=== PATIENT | male | born 1955 | race American Indian/Alaskan Native ===

== ENCOUNTER 2019-10-12 23:35 | Emergency (ER) | payer OTHER ==
[2019-10-12] MEDS ORDERED: ASPIRIN 325 MG TAB PO ONE (23:44)
[2019-10-13 00:18] LABS: Basophils # (Auto) 0.1 K/mm3 (0.0-0.1); Eosinophils # (Auto) 0.1 K/mm3 (0.0-0.4); Eosinophils % (Auto) 1.4 % (0.0-4.3); Hematocrit 40.3 % (35.5-45.6); Hemoglobin 13.4 gm/dl (11.8-15.2); Lymphocytes # (Auto) 3.4 K/mm3 (1.2-5.4); Lymphocytes % (Auto) 43.4 % (13.4-35.0); Mean Corpuscular HGB Conc 33 % (32-34); Mean Corpuscular Volume 85 fl (84-94); Monocytes # (Auto) 1.1 K/mm3 (0.0-0.8); Monocytes % (Auto) 13.5 % (0.0-7.3); Platelet Count 166 K/mm3 (140-440); Red Blood Count 4.75 M/mm3 (3.65-5.03); Red Cell Distribution Width 13.7 % (13.2-15.2)
--- NOTE | 2019-10-13 00:35 | XRay Report ---
CHEST 1 VIEW 10/12/2019 11:16 PM INDICATION / CLINICAL INFORMATION: Chest Pain. COMPARISON: None available. FINDINGS: SUPPORT DEVICES: None. HEART / MEDIASTINUM: Cardiomediastinal silhouette is within normal limits. LUNGS / PLEURA: No significant pulmonary or pleural abnormality. No pneumothorax. ADDITIONAL FINDINGS: No significant additional findings. IMPRESSION: 1. No acute findings. Signer Name: Denisse Dowd MD Signed: 10/13/2019 12:31 AM Workstation Name: [id number]
[2019-10-13 00:43] LABS: BUN/Creatinine Ratio 11; Blood Urea Nitrogen 14 mg/dL (9-20); Calcium 9.6 mg/dL (8.4-10.2); Hemolysis Index 9
--- NOTE | 2019-10-13 03:34 | Emergency Department Report ---
ED Chest Pain HPI - General Chief Complaint: Chest Pain Stated Complaint: CHEST PAIN Time Seen by Provider: 10/13/19 03:21 Source: patient Mode of arrival: Ambulatory Limitations: No Limitations - History of Present Illness Initial Comments: Patient is a 64-year-old male that presents emergency room with complaints of left-sided chest pain. Patient states his chest pain is intermittent. Patient states at times it radiates to his back. Patient states the chest pain is been going on for 4 days. Patient states that the chest pain is worse with movement and palpation. Patient states that pain has resolved at this time. Patient states his past pain is a 0 out of 10. Patient states when he arrived it was a 10 out of 10. Patient states that he has not been able to see his primary care. Patient states he has a past medical history of hypertension which he takes Norvasc for. Patient that she is compliant with his medications. Patient denie s shortness of breath. Patient denies fever. Patient denies fatigue. Patient denies chills. Patient denies dizziness. Patient denies blurry vision. Patient denies recent travel. Patient denies recent international travel. Patient denies exposure to the novel coronavirus. Patient denies sick contacts. Patient denies fever and chills. Patient denies cough. Patient denies diarrhea. Patient denies coming in contact with anybody with symptoms of the novel coronavirus. MD Complaint: chest pain -: Sudden Onset: during rest Pain Location: left chest Pain Radiation: back Quality: heaviness Consistency: now resolved Improves With: rest Worsens With: palpation, movement re: denies: nausea, vomting, diaphoresis, dyspnea, sense of impending doom Other Symptoms: denies: cough, fever, syncope, rash, acid taste in mouth, leg swelling, palpitations, burping Treatments Prior to Arrival: none Aspirin use within the Past 7 Days: (0) No - Related Data On Oral Contraceptives: No Allergies Allergy/AdvReac Type Severity Reaction Status Date / Time No Known Allergies Allergy Unverified 10/12/19 23:44 Heart Score - HEART Score History: Slightly suspicious EKG: Normal Age: 45-65 Risk factors: No known risk factors Troponin: < normal limit HEART Score: 1 ED Review of Systems ROS: Stated complaint: CHEST PAIN Other details as noted in HPI Constitutional: denies: chills, fever Eyes: denies: eye pain, eye discharge, vision change ENT: denies: ear pain, throat pain Respiratory: denies: cough, shortness of breath, wheezing Cardiovascular: chest pain. denies: palpitations Endocrine: no symptoms reported Gastrointestinal: denies: abdominal pain, nausea, diarrhea Genitourinary: denies: urgency, dysuria Musculoskeletal: denies: back pain, joint swelling, arthralgia Skin: denies: rash, lesions Neurological: denies: headache, weakness, paresthesias Psychiatric: denies: anxiety, depression Hematological/Lymphatic: denies: easy bleeding, easy bruising ED Past Medical Hx - Past Medical History Previous Medical History?: Yes Hx Hypertension: Yes - Surgical History Past Surgical History?: No - Family History Family history: no significant - Social History Smoking Status: Never Smoker Substance Use Type: None ED Physical Exam - General Limitations: No Limitations General appearance: alert, in no apparent distress - Head Head exam: Present: atraumatic, normocephalic - Eye Eye exam: Present: normal appearance - ENT ENT exam: Present: mucous membranes moist - Neck Neck exam: Present: normal inspection - Respiratory Respiratory exam: Present: normal lung sounds bilaterally, chest wall tenderness (Reproduces symptoms.). Absent: respiratory distress - Cardiovascular Cardiovascular Exam: Present: regular rate, normal rhythm. Absent: systolic murmur, diastolic murmur, rubs, gallop - GI/Abdominal GI/Abdominal exam: Present: soft, normal bowel sounds - Rectal Rectal exam: Present: deferred - Extremities Exam Extremities exam: Present: normal inspection - Back Exam Back exam: Present: normal inspection - Neurological Exam Neurological exam: Present: alert, oriented X3 - Psychiatric Psychiatric exam: Present: normal affect, normal mood - Skin Skin exam: Present: warm, dry, intact, normal color. Absent: rash ED Course Vital Signs 10/12/19 23:45 Temperature 97.7 F Pulse Rate 65 Respiratory 18 Rate Blood Pressure 162/91 O2 Sat by Pulse 96 Oximetry - Reevaluation(s) Reevaluation #1: I discussed all results and clinical findings with patient. I discussed plan of care with patient. Patient agrees with plan of care. Patient is stable for discharge. Patient will be discharged home. Patient given discharge instructions. Patient voiced understanding of discharge instructions. 10/13/19 03:35 TERE score - Tere Score Age > 65: (0) No Aspirin use within the Past 7 Days: (0) No 3 or more CAD Risk Factors: (0) No 2 or more Angina events in past 24 hrs: (0) No Known CAD with more than 50% Stenosis: (0) No Elevated Cardiac Markers: (0) No ST Deviation Greater than 0.5mm: (0) No TERE Score: 0 ED Medical Decision Making - Lab Data Result diagrams: 10/12/19 23:56 10/12/19 23:56 - EKG Data -: EKG Interpreted by Me EKG shows normal: sinus rhythm, axis, intervals, QRS complexes, ST-T waves Rate: normal - Radiology Data Radiology results: report reviewed, image reviewed interpreted by me: No acute findings on chest x-ray. - Medical Decision Making Patient is a 64-year-old male that presents emergency room with complaints of chest pain and back pain. Patient pain had resolved prior to initial evaluation. However when patient's chest wall was palpated, the symptoms are reproducible. Patient stable for discharge. Patient's chest pain is low risk. Patient will be sent to follow-up with his primary care and is information faxed over to a local cardiology group for further evaluation and treatment. Patient says chest pain is low risk and can be worked up as an outpatient. Patient instructed take a daily aspirin. Patient instructed to rest and avoid strenuous exercise until cleared by immunology specialist. Patient's chest x-ray is negative for acute findings. Patient's EKG shows sinus rhythm and is negative for acute findings. Patient's labs are unremarkable. Patient troponin negative x2. - Differential Diagnosis Costochondritis, chest wall pain, chest pain, chest sprain. Critical care attestation.: If time is entered above; I have spent that time in minutes in the direct care of this critically ill patient, excluding procedure time. ED Disposition Clinical Impression: Chest wall pain Chest pain Qualifiers: Chest pain type: unspecified Qualified Code(s): R07.9 - Chest pain, unspecified Back pain Qualifiers: Back pain location: thoracic back pain Chronicity: acute Back pain laterality: left Qualified Code(s): M54.6 - Pain in thoracic spine Disposition: - TO HOME OR SELFCARE Is pt being admited?: No Does the pt Need Aspirin: No Condition: Stable Instructions: Chest Pain (ED), Costochondritis (ED) Additional Instructions: Patient to follow-up with primary care in 2 to 3 days. Patient to follow-up with immunology specialist in 2 to 3 days. Patient to rest. Patient to increase water. Patient to avoid strenuous exercise or heavy lifting until cleared by immunology specialist. Patient to take Tylenol or ibuprofen as needed for pain. Patient start a baby aspirin daily.. Patient to return to the ER if condition worsens, changes or new symptoms arise. Referrals: FRANSICO WHITTEN MD [Primary Care Provider] - 2-3 Days FRANTZ SANCHEZ MD [Staff Physician] - 2-3 Days Time of Disposition: 03:34
[2019-10-13 05:34] VITALS: BP 152/86
== END 2019-10-13 04:20 | disposition home or self-care (01) ==
LOC: ED 23:35
DX: R07.89 Other chest pain (principal); M54.6 Pain in thoracic spine; I10 Essential (primary) hypertension
CPT/HCPCS: 36415; 71045; 80048; 84484; 85025; 93005; 93010; 99284

== ENCOUNTER 2020-05-25 22:34 | Emergency (ER) | payer OTHER ==
[2020-05-25] MEDS ORDERED: ASPIRIN 81 MG TAB CHEW PO ONE (23:12)
--- NOTE | 2020-05-25 23:13 | Emergency Department Report ---
ED Chest Pain HPI - General Chief Complaint: Chest Pain Stated Complaint: CHEST PAINS PUI?: No Time Seen by Provider: 05/25/20 23:10 Source: patient Mode of arrival: Ambulatory Limitations: No Limitations - History of Present Illness Initial Comments: Patient is a 65-year-old male that presents emergency room with complaints of right-sided chest pain. Patient states his chest pain is worsening. Patient states his chest pain is a 4 out of 10. Patient states the chest pain started at 2 PM today. Patient states that the chest pain started when he was sitting. Patient states that the chest pain is unchanged by any factors. Patient denies shortness of breath. Patient denies fever and chills. Patient denies cough. Patient denies abdominal pain. Patient denies nausea and vomiting. Patient denies recent travel. Patient denies recent international travel. Patient denies exposure to the novel coronavirus. Patient denies sick contacts. Patient denies fever and chills. Patient denies cough. Patient denies jamila rrhea. Patient denies coming in contact with anybody with symptoms of the novel coronavirus. MD Complaint: chest pain -: Sudden Pain Location: right chest Severity scale (0 -10): 4 Quality: pressure Consistency: constant Improves With: nothing Worsens With: nothing re: denies: nausea, vomting, diaphoresis, dyspnea, sense of impending doom Other Symptoms: denies: cough, fever, syncope, rash, acid taste in mouth, leg swelling, palpitations, burping Treatments Prior to Arrival: none Aspirin use within the Past 7 Days: (0) No - Related Data On Oral Contraceptives: No Allergies Allergy/AdvReac Type Severity Reaction Status Date / Time No Known Allergies Allergy Unverified 10/12/19 23:44 Heart Score - HEART Score History: Slightly suspicious EKG: Normal Age: 45-65 Risk factors: No known risk factors Troponin: < normal limit HEART Score: 1 ED Review of Systems ROS: Stated complaint: CHEST PAINS Other details as noted in HPI Constitutional: denies: chills, fever Eyes: denies: eye pain, eye discharge, vision change ENT: denies: ear pain, throat pain Respiratory: denies: cough, shortness of breath, wheezing Cardiovascular: chest pain. denies: palpitations Endocrine: no symptoms reported Gastrointestinal: denies: abdominal pain, nausea, diarrhea Genitourinary: denies: urgency, dysuria Musculoskeletal: denies: back pain, joint swelling, arthralgia Skin: denies: rash, lesions Neurological: denies: headache, weakness, paresthesias Psychiatric: denies: anxiety, depression Hematological/Lymphatic: denies: easy bleeding, easy bruising ED Past Medical Hx - Past Medical History Previous Medical History?: Yes Hx Hypertension: Yes - Surgical History Past Surgical History?: No - Family History Family history: no significant - Social History Smoking Status: Never Smoker Substance Use Type: None ED Physical Exam - General Limitations: No Limitations General appearance: alert, in no apparent distress - Head Head exam: Present: atraumatic, normocephalic - Eye Eye exam: Present: normal appearance - ENT ENT exam: Present: mucous membranes moist - Neck Neck exam: Present: normal inspection - Respiratory Respiratory exam: Present: normal lung sounds bilaterally, chest wall tenderness. Absent: respiratory distress - Cardiovascular Cardiovascular Exam: Present: regular rate, normal rhythm, normal heart sounds. Absent: systolic murmur, diastolic murmur, rubs, gallop - GI/Abdominal GI/Abdominal exam: Present: soft, normal bowel sounds - Rectal Rectal exam: Present: deferred - Extremities Exam Extremities exam: Present: normal inspection - Back Exam Back exam: Present: normal inspection - Neurological Exam Neurological exam: Present: alert, oriented X3 - Psychiatric Psychiatric exam: Present: normal affect, normal mood - Skin Skin exam: Present: warm, dry, intact, normal color. Absent: rash ED Course Vital Signs 05/25/20 05/25/20 05/25/20 23:03 23:04 23:16 Temperature 98.3 F Pulse Rate 75 Respiratory 18 Rate Blood Pressure 147/73 129/70 Blood Pressure 147/73 [Left] O2 Sat by Pulse 93 100 90 Oximetry 05/25/20 05/25/20 05/26/20 23:30 23:45 00:00 Temperature Pulse Rate Respiratory Rate Blood Pressure 129/70 124/71 119/63 Blood Pressure [Left] O2 Sat by Pulse 91 94 94 Oximetry 05/26/20 00:15 Temperature Pulse Rate Respiratory Rate Blood Pressure 116/67 Blood Pressure [Left] O2 Sat by Pulse 94 Oximetry - Reevaluation(s) Reevaluation #1: Patient states his chest pain has resolved. I discussed all results and clinical findings with patient. I discussed plan of care with patient. Patient agrees with plan of care. Patient is stable for discharge. Patient will be discharged home. Patient given discharge instructions. Patient voiced understanding of discharge instructions. 05/26/20 01:06 TERE score - Tere Score Age > 65: (0) No Aspirin use within the Past 7 Days: (0) No 3 or more CAD Risk Factors: (0) No 2 or more Angina events in past 24 hrs: (0) No Known CAD with more than 50% Stenosis: (0) No Elevated Cardiac Markers: (0) No ST Deviation Greater than 0.5mm: (0) No TERE Score: 0 ED Medical Decision Making - Lab Data Result diagrams: 05/25/20 23:30 05/25/20 23:30 - EKG Data -: EKG Interpreted by Me EKG shows normal: sinus rhythm, axis, intervals, QRS complexes, ST-T waves Rate: bradycardia - Radiology Data Radiology results: report reviewed interpreted by me: Chest x-ray: No pneumonia, no pneumothorax, no foreign body, no osseous findings, no acute findings CHEST 1 VIEW INDICATION / CLINICAL INFORMATION: Chest Pain. FINDINGS: SUPPORT DEVICES: None. HEART / MEDIASTINUM: No significant abnormality. LUNGS / PLEURA: No significant pulmonary or pleural abnormality. No pneumothorax. ADDITIONAL FINDINGS: No significant additional findings. IMPRESSION: 1. No acute findings. - Medical Decision Making Patient is a 65-year-old male that presents emergency room with complaints of right-sided chest pain that started 9 hours prior to arrival. Patient chest pain is reproducible on exam. Patient's labs were essentially unremarkable. Patient chest x-ray is negative. Patient's D-dimer is negative. Patient's EKG is negative. Patient is stable for discharge. Patient's information will be faxed over to her local cytometry technologist for risk stratification of the patient's chest pain. Patient will need to follow-up with a cytometry technologist and his primary care as needed possible. - Differential Diagnosis Chest pain, chest wall pain, PE, chest strain. Critical care attestation.: If time is entered above; I have spent that time in minutes in the direct care of this critically ill patient, excluding procedure time. ED Disposition Clinical Impression: Right-sided chest pain, Hyperglycemia Chest pain Qualifiers: Chest pain type: unspecified Qualified Code(s): R07.9 - Chest pain, unspecified Disposition: DC-01 TO HOME OR SELFCARE Is pt being admited?: No Does the pt Need Aspirin: No Condition: Stable Instructions: Chest Wall Pain, [id number], Hyperglycemia, Chest Pain (ED) Additional Instructions: Patient to follow-up with primary care in 2 to 3 days. Patient to follow-up with cytometry technologist in 2 to 3 days. Patient to rest. Patient to increase water. Patient to avoid strenuous exercise or heavy lifting until cleared by cytometry technologist. Patient to take Tylenol or ibuprofen as needed for pain. Patient to eat a heart healthy diet. Patient to monitor blood pressure at home. Patient states blood pressure log to follow-up appointments. Patient to avoid working until cleared by cytometry technologist. Patient to return to the ER if condition worsens, changes or new symptoms arise. Referrals: PRIMARY CARE, [Primary Care Provider] - 2-3 Days FRANTZ SANCHEZ MD [Staff Physician] - 2-3 Days Time of Disposition: 01:12
--- NOTE | 2020-05-25 23:50 | XRay Report ---
CHEST 1 VIEW INDICATION / CLINICAL INFORMATION: Chest Pain. FINDINGS: SUPPORT DEVICES: None. HEART / MEDIASTINUM: No significant abnormality. LUNGS / PLEURA: No significant pulmonary or pleural abnormality. No pneumothorax. ADDITIONAL FINDINGS: No significant additional findings. IMPRESSION: 1. No acute findings. Signer Name: Chico Russo MD Signed: 05/25/2020 11:45 PM Workstation Name: [id number]
[2020-05-26 00:01] LABS: Basophils # (Auto) 0.1 K/mm3 (0.0-0.1); Basophils % (Auto) 1.2 % (0.0-1.8); Eosinophils # (Auto) 0.1 K/mm3 (0.0-0.4); Eosinophils % (Auto) 1.7 % (0.0-4.3); Hematocrit 36.7 % (35.5-45.6); Hemoglobin 12.2 gm/dl (11.8-15.2); Lymphocytes # (Auto) 2.9 K/mm3 (1.2-5.4); Mean Corpuscular HGB Conc 33 % (32-34); Mean Corpuscular Volume 88 fl (84-94); Monocytes # (Auto) 0.7 K/mm3 (0.0-0.8); Monocytes % (Auto) 10.9 % (0.0-7.3); Platelet Count 145 K/mm3 (140-440); Red Blood Count 4.17 M/mm3 (3.65-5.03); Red Cell Distribution Width 13.8 % (13.2-15.2)
[2020-05-26 00:14] LABS: Alanine Aminotransferase 30 units/L (7-56); BUN/Creatinine Ratio 11; Blood Urea Nitrogen 15 mg/dL (9-20); Calcium 8.7 mg/dL (8.4-10.2); Hemolysis Index 7
== END 2020-05-26 03:15 | disposition home or self-care (01) ==
LOC: ED 22:34
DX: R07.9 Chest pain, unspecified (principal); R73.9 Hyperglycemia, unspecified; I10 Essential (primary) hypertension
CPT/HCPCS: 36415; 71045; 80053; 84484; 85025; 85379; 93005

== ENCOUNTER 2021-04-07 03:45 | Emergency (ER) | payer SELFPAY ==
--- NOTE | 2021-04-07 05:19 | XRay Report ---
XR chest routine 2V INDICATION / CLINICAL INFORMATION: chest pain. COMPARISON: 05/25/2020 FINDINGS: SUPPORT DEVICES: None. HEART /PULMONARY VASCULATURE: No significant abnormality. LUNGS / PLEURA: No significant pulmonary or pleural abnormality. No pneumothorax. ADDITIONAL FINDINGS: No significant additional findings. IMPRESSION: 1. No acute findings. Signer Name: Trey Triana MD Signed: 04/07/2021 5:15 AM Workstation Name: [id number]
[2021-04-07 05:27] LABS: Basophils % (Auto) 0.7 % (0.0-1.8); Eosinophils # (Auto) 0.1 K/mm3 (0.0-0.4); Eosinophils % (Auto) 1.6 % (0.0-4.3); Hematocrit 42.9 % (35.5-45.6); Hemoglobin 14.3 gm/dl (11.8-15.2); Lymphocytes # (Auto) 2.7 K/mm3 (1.2-5.4); Lymphocytes % (Auto) 44.5 % (13.4-35.0); Mean Corpuscular HGB Conc 33 % (32-34); Mean Corpuscular Volume 87 fl (84-94); Monocytes # (Auto) 0.8 K/mm3 (0.0-0.8); Monocytes % (Auto) 12.5 % (0.0-7.3); Platelet Count 150 K/mm3 (140-440); Red Blood Count 4.95 M/mm3 (3.65-5.03); Red Cell Distribution Width 14.4 % (13.2-15.2)
[2021-04-07 05:40] LABS: Alanine Aminotransferase 25 units/L (7-56); Albumin 4.5 g/dL (3.9-5); BUN/Creatinine Ratio 15; Blood Urea Nitrogen 16 mg/dL (9-20); Calcium 9.6 mg/dL (8.4-10.2); Hemolysis Index 10
[2021-04-07] MEDS ORDERED: KETOROLAC 60 MG/2 ML INJ IM ONE (06:29)
--- NOTE | 2021-04-07 06:30 | Emergency Department Report ---
ED Chest Pain HPI - General Chief Complaint: Chest Pain Stated Complaint: CHEST PAIN Time Seen by Provider: 04/07/21 06:16 Source: patient Mode of arrival: Ambulatory Limitations: No Limitations - History of Present Illness Initial Comments: 65-year-old male with a past medical history of hypertension presents to the hospital complaining of a constant right sided chest pain for the last 3 days. Pain is in the right upper anterior chest and radiates towards the posterior right upper thoracic area. Pain described as sharp, currently rated 5/10 in in tensity, and somewhat worse with deep inspiration. Patient denies that pain is worse with movement, palpation, or exertion. Patient denies shortness of breath, nausea, vomiting, diarrhea, cough, loss of sense of taste or smell, diaphoresis and is immunized for Covid. He also denies recent long distance travel, calf tenderness/leg edema, history of PE/DVT. Patient denies history of CAD and has not had a previous stress test. Patient does not smoke and denies family history of CAD before the age of 65. Patient is compliant with his amlodipine 10 mg daily with last dose yesterday. Patient is taking Aleve intermittently for pain with mild improvement. - Related Data Previous Rx's Medication Instructions Recorded Last Taken Type Ibuprofen [Motrin] 800 mg PO Q8HR PRN #20 tablet 04/07/21 Unknown Rx Allergies Allergy/AdvReac Type Severity Reaction Status Date / Time No Known Allergies Allergy Unverified 10/12/19 23:44 Heart Score - HEART Score History: Slightly suspicious EKG: Normal Age: 45-65 Risk factors: 1-2 risk factors Troponin: < normal limit HEART Score: 2 - EKG Read Time Time EKG Completed: 04:41 EKG Read Time: 04:43 ED Review of Systems ROS: Stated complaint: CHEST PAIN Other details as noted in HPI Comment: All other systems reviewed and negative ED Past Medical Hx - Past Medical History Previous Medical History?: Yes Hx Hypertension: Yes - Surgical History Past Surgical History?: No - Social History Smoking Status: Never Smoker Substance Use Type: None - Medications Home Medications: Home Medications Medication Instructions Recorded Confirmed Last Taken Type Ibuprofen [Motrin] 800 mg PO Q8HR PRN #20 tablet 04/07/21 Unknown Rx ED Physical Exam - General Limitations: No Limitations - Other Other exam information: General: No acute distress Head: Atraumatic Eyes: normal appearance ENT: Moist mucous membranes Neck: Normal appearance, no midline tenderness Chest: Clear to auscultation bilaterally, chest wall nontender with palpation, pain somewhat reproducible with movement of right shoulder CV: Regular rate and rhythm Abdomen: Soft, normal bowel sounds, nontender, nondistended, no rebound or guarding Back: Normal inspection Extremity: Normal inspection, full range of motion, no calf tenderness or leg edema Neuro: Alert O x 3, no facial asymmetry, speech clear, no gross motor sensory deficit Psych: Appropriate behavior Skin: No rash ED Course Vital Signs 04/07/21 04/07/21 04/07/21 04:34 05:45 06:01 Temperature 98.3 F Pulse Rate 55 L 53 L 54 L Respiratory 16 16 12 Rate Blood Pressure 138/79 153/76 O2 Sat by Pulse 100 98 99 Oximetry 04/07/21 04/07/21 04/07/21 06:15 06:31 06:45 Temperature Pulse Rate 51 L 52 L 50 L Respiratory 13 14 16 Rate Blood Pressure 153/86 145/88 153/76 O2 Sat by Pulse 99 99 99 Oximetry 04/07/21 07:02 Temperature Pulse Rate Respiratory 18 Rate Blood Pressure O2 Sat by Pulse Oximetry TERE score - Tere Score Age > 65: (0) No Aspirin use within the Past 7 Days: (0) No 3 or more CAD Risk Factors: (0) No 2 or more Angina events in past 24 hrs: (0) No Known CAD with more than 50% Stenosis: (0) No Elevated Cardiac Markers: (0) No ST Deviation Greater than 0.5mm: (0) No TERE Score: 0 ED Medical Decision Making - Lab Data Result diagrams: 04/07/21 04:51 04/07/21 04:51 Lab Results 04/07/21 04/07/21 04/07/21 Range/Units 04:51 04:51 06:49 WBC 6.1 (4.5-11.0) K/mm3 RBC 4.95 (3.65-5.03) M/mm3 Hgb 14.3 (11.8-15.2) gm/dl Hct 42.9 (35.5-45.6) % MCV 87 (84-94) fl MCH 29 (28-32) pg MCHC 33 (32-34) % RDW 14.4 (13.2-15.2) % Plt Count 150 (140-440) K/mm3 Lymph % (Auto) 44.5 H (13.4-35.0) % [place] % (Auto) 12.5 H (0.0-7.3) % Eos % (Auto) 1.6 (0.0-4.3) % Baso % (Auto) 0.7 (0.0-1.8) % Lymph # (Auto) 2.7 (1.2-5.4) K/mm3 [place] # (Auto) 0.8 (0.0-0.8) K/mm3 Eos # (Auto) 0.1 (0.0-0.4) K/mm3 Baso # (Auto) 0.0 (0.0-0.1) K/mm3 Seg Neutrophils % 40.7 (40.0-70.0) % Seg Neutrophils # 2.5 (1.8-7.7) K/mm3 D-Dimer (0-234) ng/mlDDU Sodium 140 (137-145) mmol/L Potassium 4.7 (3.6-5.0) mmol/L Chloride 102.0 (98-107) mmol/L Carbon Dioxide 26 (22-30) mmol/L Anion Gap 17 mmol/L BUN 16 (9-20) mg/dL Creatinine 1.1 (0.8-1.3) mg/dL Estimated GFR > 60 ml/min BUN/Creatinine Ratio 15 % Glucose 91 (75-100) mg/dL Calcium 9.6 (8.4-10.2) mg/dL Total Bilirubin 0.60 (0.1-1.2) mg/dL AST 24 (5-40) units/L ALT 25 (7-56) units/L Alkaline Phosphatase 62 (35-129) units/L Troponin T < 0.010 < 0.010 (0.00-0.029) ng/mL Total Protein 8.0 (6.3-8.2) g/dL Albumin 4.5 (3.9-5) g/dL Albumin/Globulin Ratio 1.3 % 04/07/21 Range/Units 06:49 WBC (4.5-11.0) K/mm3 RBC (3.65-5.03) M/mm3 Hgb (11.8-15.2) gm/dl Hct (35.5-45.6) % MCV (84-94) fl MCH (28-32) pg MCHC (32-34) % RDW (13.2-15.2) % Plt Count (140-440) K/mm3 Lymph % (Auto) (13.4-35.0) % [place] % (Auto) (0.0-7.3) % Eos % (Auto) (0.0-4.3) % Baso % (Auto) (0.0-1.8) % Lymph # (Auto) (1.2-5.4) K/mm3 [place] # (Auto) (0.0-0.8) K/mm3 Eos # (Auto) (0.0-0.4) K/mm3 Baso # (Auto) (0.0-0.1) K/mm3 Seg Neutrophils % (40.0-70.0) % Seg Neutrophils # (1.8-7.7) K/mm3 D-Dimer < 135.00 (0-234) ng/mlDDU Sodium (137-145) mmol/L Potassium (3.6-5.0) mmol/L Chloride (98-107) mmol/L Carbon Dioxide (22-30) mmol/L Anion Gap mmol/L BUN (9-20) mg/dL Creatinine (0.8-1.3) mg/dL Estimated GFR ml/min BUN/Creatinine Ratio % Glucose (75-100) mg/dL Calcium (8.4-10.2) mg/dL Total Bilirubin (0.1-1.2) mg/dL AST (5-40) units/L ALT (7-56) units/L Alkaline Phosphatase (35-129) units/L Troponin T (0.00-0.029) ng/mL Total Protein (6.3-8.2) g/dL Albumin (3.9-5) g/dL Albumin/Globulin Ratio % - EKG Data -: EKG Interpreted by Mo EKG shows normal: sinus rhythm, ST-T waves (no stemi) Rate: normal - EKG Data When compared to previous EKG there are: no significant change (Compared to May 26, 2020) 04/07/21 08:09 Repeat EKG performed at 7:43 AM and read at seven-point 9 AM without acute changes or signs of ischemia - Radiology Data Radiology results: report reviewed XR chest routine 2V INDICATION / CLINICAL INFORMATION: chest pain. COMPARISON: 05/25/2020 FINDINGS: SUPPORT DEVICES: None. HEART /PULMONARY VASCULATURE: No significant abnormality. LUNGS / PLEURA: No significant pulmonary or pleural abnormality. No pneumothorax. ADDITIONAL FINDINGS: No significant additional findings. IMPRESSION: 1. No acute findings. - Medical Decision Making 65-year-old male presents to the hospital with atypical right-sided chest pain. Patient has a heart score of 1 with troponin negative x2 and unchanged EKG x2, low risk for PE based on Wells criteria with a negative D-dimer, unremarkable vital signs with the exception of mild hypertension and asymptomatic bradycardia. Patient will be discharged home with NSAIDs for atypical right- sided chest pain and PMD follow-up will be encouraged Critical Care Time: No Critical care attestation.: If time is entered above; I have spent that time in minutes in the direct care of this critically ill patient, excluding procedure time. ED Disposition Clinical Impression: Atypical chest pain, Right-sided chest pain Disposition: HOME / SELF CARE / HOMELESS Is pt being admited?: No Does the pt Need Aspirin: No Condition: Stable Instructions: Nonspecific Chest Pain, Adult Additional Instructions: Take the medication as prescribed. Follow-up with your doctor or doctor/clinic provided. Return if symptoms worsen as indicated by your discharge instructions. Prescriptions: Ibuprofen [Motrin] 800 mg PO Q8HR PRN #20 tablet PRN Reason: Pain , Severe (7-10) Referrals: PRIMARY MD JESSENIA [Primary Care Provider] - 3-5 Days MIL LAZO MD [Staff Physician] - 3-5 Days Forms: Work/School Release Form(ED) Time of Disposition: 08:10
[2021-04-07 08:36] VITALS: BP 137/83
--- NOTE | 2021-04-07 14:51 | Electrocardiograph Report ---
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
--- NOTE | 2021-04-07 14:52 | Electrocardiograph Report ---
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
== END 2021-04-07 08:38 | disposition home or self-care (01) ==
LOC: ED 03:45
DX: R07.89 Other chest pain (principal); I10 Essential (primary) hypertension
CPT/HCPCS: 36415; 71046; 80053; 84484; 85025; 85379; 93005; 96372; 99283; J1885

== ENCOUNTER 2021-05-26 23:23 | Emergency (ER) | payer OTHER ==
[2021-05-26] MEDS ORDERED: IBUPROFEN 800 MG TAB PO ONE (23:48)
--- NOTE | 2021-05-26 23:49 | Emergency Department Report ---
Upper Extremity - HPI Chief Complaint: Shoulder Injury Stated Complaint: RT SHOULDER PAIN Time Seen by Provider: 05/26/21 23:48 Other History: Patient presents with a 2-day history of nontraumatic right arm pain. He described as an aching pain and stabbing pain in the right arm. This involves pain in the upper arm from the shoulder radiating down into the biceps and triceps area. This is not reproducible. The pain is not worse with palpat ion or movement. He has no trauma. He has no injury. He has no chest pain or shortness of breath. Pain is not worsened by exertion. He denies numbness or tingling in the extremity. He has taken oald-cqy-vgionif pain medication without symptomatic improvement. Because of the pain, he came here for evaluation. ED Review of Systems ROS: Stated complaint: RT SHOULDER PAIN Other details as noted in HPI Comment: All other systems reviewed and negative Constitutional: denies: fever Eyes: denies: eye pain ENT: denies: throat pain Respiratory: denies: cough Cardiovascular: denies: chest pain Endocrine: denies: unexplained weight loss Gastrointestinal: denies: abdominal pain Genitourinary: denies: dysuria Musculoskeletal: denies: back pain Skin: denies: rash Neurological: denies: headache Hematological/Lymphatic: denies: easy bruising ED Past Medical Hx - Past Medical History Hx Hypertension: Yes - Surgical History Past Surgical History?: Yes Additional Surgical History: prostate - Family History Family history: hypertension - Social History Smoking Status: Never Smoker Substance Use Type: None - Medications Home Medications: Home Medications Medication Instructions Recorded Confirmed Last Taken Type Ibuprofen [Motrin 800 MG tab] 800 mg PO Q8HR PRN #20 tablet 05/27/21 Unknown Rx Lidocaine [Lidoderm] 1 each TP DAILY #30 adh..patch 05/27/21 Unknown Rx Upper Extremity Exam - Exam General: Vital signs noted. No distress. Alert and acting appropriately. Head and Torso: No HEENT Abnormality, No Neck Tenderness (No midline tenderness or step-off), No Chest/Lungs Abnormality (Regular rate and rhythm. Clear bilaterally), No Abdominal Tenderness, No Back Tenderness Shoulder Exam: Yes Normal Range of Motion in Shoulder, No Shoulder Tenderness, No Clavicle Tenderness, No Shoulder Deformity, No AC Joint Tenderness Arm Exam: No Arm/Humerus Tenderness, No Arm Deformity Elbow: No Elbow Tenderness, No Normal Range of Motion in Elbow, No Elbow Deformity Forearm: No Forearm Tenderness, No Forearm Deformity, No Pain with Pronation, No Pain with Supination Wrist: No Wrist Tenderness, No Normal ROM in Wrist, No Wrist Deformity Hand: No Hand Tenderness, No Hand Deformity CMS Exam: Yes Normal Distal Pulses, Yes Normal Capillary Refill, Yes Normal Distal Sensation, No Broken Skin ED Course Vital Signs 05/26/21 23:43 Temperature 98.2 F Pulse Rate 62 Respiratory 16 Rate O2 Sat by Pulse 97 Oximetry - Reevaluation(s) Reevaluation #1: 05/26/21 23:49 EKG and xr ordered. Old records noted. Reevaluation #2: 05/27/21 00:27 EKG was noted. X-ray is pending. Reevaluation #3: 05/27/21 01:34 EDT X-rays are noted. Patient was discharged. ED Medical Decision Making - Radiology Data Radiology results: report reviewed - Medical Decision Making Patient presented with nontraumatic right arm pain. This pain cannot be reproduced with palpation. I am not convinced that it is musculoskeletal in nature. There is no trauma. There is no fracture or dislocation. He has no pulse deficit or cool extremity that would suggest vascular compromise. His arm is not edematous. I do not believe this represents DVT. He has no neck pain or tenderness that would suggest cervical radiculopathy. Patient does not have any chest pain or change in EKG that would suggest ACS. He has been seen here previously for recurrent chest pain and his cardiac work-ups have been negative. Critical Care Time: No Critical care attestation.: If time is entered above; I have spent that time in minutes in the direct care of this critically ill patient, excluding procedure time. ED Disposition Clinical Impression: Pain in right upper arm Disposition: HOME / SELF CARE / HOMELESS Is pt being admited?: No Condition: Stable Instructions: How to Use Cold Therapy, Pain Without a Known Cause Additional Instructions: Try ice or heat for your arm. Drink plenty of water. Return for problems. Follow-up with your regular doctor for recheck and further management. Take the medication as needed for pain. If you develop chest pain, trouble breathing, or other symptoms, please return. Prescriptions: Lidocaine [Lidoderm] 1 each TP DAILY #30 adh..patch Ibuprofen [Motrin 800 MG tab] 800 mg PO Q8HR PRN #20 tablet PRN Reason: Pain , Severe (7-10) Referrals: PRIMARY CAREMD [Referring] - 3-5 Days DOUGLAS MARIA MD [Staff Physician] - 3-5 Days
--- NOTE | 2021-05-27 01:00 | XRay Report ---
RIGHT SHOULDER 3 VIEW(S) INDICATION / CLINICAL INFORMATION: shoulder pain. COMPARISON: None available. FINDINGS: BONES / JOINT(S): No acute fracture or subluxation. Mild AC joint degenerative arthrosis. SOFT TISSUES: No significant abnormality. ADDITIONAL FINDINGS: None. Signer Name: Denisse Dowd MD Signed: 05/27/2021 12:56 AM Workstation Name: [id number]
--- NOTE | 2021-05-27 11:47 | Electrocardiograph Report ---
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
== END 2021-05-27 01:51 | disposition home or self-care (01) ==
LOC: ED 23:23
DX: M79.621 Pain in right upper arm (principal); I10 Essential (primary) hypertension
CPT/HCPCS: 93005; 99283

== ENCOUNTER 2021-08-31 17:47 | Emergency (ER) | payer OTHER ==
[2021-08-31] MEDS ORDERED: ONDANSETRON 4 MG/2 ML INJ ONE (18:07)
[2021-08-31] MEDS ORDERED: ASPIRIN 81 MG TAB CHEW PO ONE (23:09)
[2021-08-31] MEDS ORDERED: NITROGLYCERIN 0.4 MG TAB SUBL SL PRN (23:09)
--- NOTE | 2021-08-31 23:34 | XRay Report ---
CHEST 2 VIEWS INDICATION / CLINICAL INFORMATION: arm pain. COMPARISON: None available. FINDINGS: SUPPORT DEVICES: None. HEART / MEDIASTINUM: No significant abnormality. LUNGS / PLEURA: No significant pulmonary or pleural abnormality. No pneumothorax. ADDITIONAL FINDINGS: No significant additional findings. IMPRESSION: 1. No active cardiopulmonary disease. Signer Name: Colby Gaytan II, MD Signed: 08/31/2021 11:30 PM Workstation Name: [id number]
[2021-08-31 23:54] LABS: Mean Corpuscular HGB Conc 31 % (32-34); Mean Corpuscular Volume 85 fl (84-94); Platelet Count 140 K/mm3 (140-440); Red Blood Count 5.59 M/mm3 (3.65-5.03); Red Cell Distribution Width 13.5 % (13.2-15.2)
[2021-08-31 23:55] LABS: Hematocrit 47.6 % (35.5-45.6); Hemoglobin 14.8 gm/dl (11.8-15.2)
--- NOTE | 2021-09-01 00:03 | Emergency Department Report ---
ED General Adult HPI - General Chief complaint: High BP Stated complaint: BI SHOULDER PAIN/HEADACHE Time Seen by Provider: 08/31/21 22:20 Source: patient Mode of arrival: Ambulatory Limitations: No Limitations - History of Present Illness Initial comments: Patient presents with elevated blood pressure. He actually states that he had something happen at home and that made his blood pressure go up tonight. He did have a headache this morning that was global and in the vertex. He had no blurry vision or double vision associated with this. For the last 2 days he has described bilateral shoulder aching. He thinks it is because he is sleeping on his side or sleeping on his arm wrong. He has not noticed any aggravating or alleviating factors with a headache, shoulder aching, or blood pressure. He still states that he believes his blood pressure was elevated today because of something that happened at home. He describes it as "a situation." He will not elaborate. Patient denies chest pain. He denies shortness of breath. He has not been eating salt. He has not been using decongestants. - Related Data Previous Rx's Medication Instructions Recorded Last Taken Type Ibuprofen [Motrin 800 MG tab] 800 mg PO Q8HR PRN #20 tablet 05/27/21 Unknown Rx Lidocaine [Lidoderm] 1 each TP DAILY #30 adh..patch 05/27/21 Unknown Rx Allergies Allergy/AdvReac Type Severity Reaction Status Date / Time No Known Allergies Allergy Unverified 10/12/19 23:44 ED Review of Systems ROS: Stated complaint: BI SHOULDER PAIN/HEADACHE Other details as noted in HPI Comment: All other systems reviewed and negative Constitutional: denies: fever Eyes: denies: vision change ENT: denies: epistaxis Respiratory: denies: cough Cardiovascular: denies: chest pain Gastrointestinal: denies: abdominal pain Genitourinary: denies: dysuria Musculoskeletal: denies: back pain Skin: denies: rash Neurological: as per HPI Hematological/Lymphatic: denies: easy bruising ED Past Medical Hx - Past Medical History Previous Medical History?: Yes Hx Hypertension: Yes - Surgical History Past Surgical History?: Yes Additional Surgical History: prostate - Family History Family history: hypertension - Social History Smoking Status: Never Smoker Substance Use Type: None - Medications Home Medications: Home Medications Medication Instructions Recorded Confirmed Last Taken Type Ibuprofen [Motrin 800 MG tab] 800 mg PO Q8HR PRN #20 tablet 05/27/21 Unknown Rx Lidocaine [Lidoderm] 1 each TP DAILY #30 adh..patch 05/27/21 Unknown Rx ED Physical Exam - General Limitations: No Limitations, Other (Pulse ox noted and normal) General appearance: alert, in no apparent distress - Head Head exam: Present: atraumatic, normocephalic, normal inspection - Eye Eye exam: Present: normal appearance, PERRL, EOMI. Absent: scleral icterus - ENT ENT exam: Present: normal orophraynx, normal external ear exam - Neck Neck exam: Present: normal inspection. Absent: meningismus - Respiratory Respiratory exam: Present: normal lung sounds bilaterally. Absent: respiratory distress - Cardiovascular Cardiovascular Exam: Present: normal rhythm, bradycardia. Absent: JVD - GI/Abdominal GI/Abdominal exam: Present: soft. Absent: distended, tenderness - Extremities Exam Extremities exam: Present: normal capillary refill. Absent: pedal edema - Back Exam Back exam: Absent: CVA tenderness (R), CVA tenderness (L) - Neurological Exam Neurological exam: Present: alert, oriented X3, CN II-XII intact, normal gait, reflexes normal. Absent: motor sensory deficit - Psychiatric Psychiatric exam: Present: normal affect, normal mood - Skin Skin exam: Present: warm, dry ED Course Vital Signs 08/31/21 09/01/21 21:52 02:03 Temperature 98.7 F Pulse Rate 56 L 50 L Respiratory 17 18 Rate Blood Pressure 174/88 Blood Pressure 149/77 [Left] O2 Sat by Pulse 99 100 Oximetry - Reevaluation(s) Reevaluation #1: 09/01/21 00:02 EKG have been noted. IV and labs ordered. X-ray was ordered. Old records noted. Patient does not have any tenderness with palpation over the arms that would recreate his pain that would suggest musculoskeletal in nature. Reevaluation #2: 09/01/21 01:06 Labs and x-rays have been noted. Repeat blood pressure has been requested. Reevaluation #3: 09/01/21 02:17 Blood pressure had improved. ED Medical Decision Making - Lab Data Result diagrams: 08/31/21 23:29 08/31/21 23:29 Rhythm strip: Normal sinus rhythm without ectopy per monitor observe 10 seconds. - EKG Data -: EKG Interpreted by Me - EKG Data 02/12/22 02:18 EKG shows sinus bradycardia with normal intervals. QRS and QT corrected were normal. Patient has no ST elevation to suggest STEMI. There is no ST d epression suggestive of ischemia. - Radiology Data Radiology results: report reviewed - Medical Decision Making Patient presented with elevated blood pressure which he states was "situational." He did report having aching in both arms which could not be repeated with palpation. I do not believe this is musculoskeletal. We did a c ardiac work-up which was essentially unremarkable. Patient had had symptoms for 1 to 2 days that was constant. His arm pain was not exertional. He did not have evidence of STEMI on EKG. Patient did not have a pulse deficit or wide mediastinum suggestive of aortic dissection. There was no trauma associated with this. He was treated symptomatically and discharged. Critical Care Time: No Critical care attestation.: If time is entered above; I have spent that time in minutes in the direct care of this critically ill patient, excluding procedure time. ED Disposition Clinical Impression: Elevated blood pressure reading, Generalized headache, Bilateral arm pain Disposition: 01 HOME / SELF CARE / HOMELESS Is pt being admited?: No Condition: Stable Instructions: Shoulder Pain, Form - Headache Record, Preventing Hypertension, Pain Without a Known Cause, Hypertension, Adult Additional Instructions: Drink plenty water. Avoid all salt. Eat a low-sodium diet. Avoid caffeine and other decongestants. Return for problems. Referrals: PRIMARY CAREMD [Referring] - 3-5 Days KENNY SANCHEZ MD [Staff Physician] - 3-5 Days Forms: Work/School Excuse Out Patient, Work/School Release Form
[2021-09-01 00:09] LABS: BUN/Creatinine Ratio 13; Blood Urea Nitrogen 14 mg/dL (9-20); Hemolysis Index 7
[2021-09-01 02:04] VITALS: BP 149/77
--- NOTE | 2021-09-02 09:54 | Electrocardiograph Report ---
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
== END 2021-09-01 02:19 | disposition home or self-care (01) ==
LOC: ED 17:47
DX: R03.0 Elevated blood-pressure reading, without diagnosis of hypertension (principal); M25.511 Pain in right shoulder; M25.512 Pain in left shoulder; R51.9 Headache, unspecified; I10 Essential (primary) hypertension; Z79.899 Other long term (current) drug therapy
CPT/HCPCS: 36415; 71046; 80048; 84484; 85027; 93005; 93010; 99284; J2405